=== PATIENT | female | born 1950 | race Caucasian/White ===

== ENCOUNTER 2018-04-05 06:57 | Day surgery (SDC) | payer BC ==
[2018-04-05] MEDS ORDERED: PROPOFOL 200 MG INJ (07:00)
[2018-04-05] MEDS ORDERED: SOD CHLORIDE 0.9% 1,000 ML IV (08:00)
[2018-04-05] MEDS: MOXIFLOXACIN 0.5% 3 ML OPH OPER (08:05)
[2018-04-05] MEDS: CYCLOPENTOLATE/PHENYLEPH 5 ML OPH XX (08:05)
[2018-04-05] MEDS: DICLOFENAC 0.1% 2.5 ML OPH OPER (08:05)
[2018-04-05] MEDS: TROPICAMIDE 1% 15 ML OPH OPER (08:05)
[2018-04-05] MEDS ORDERED: TETRACAINE 0.5% 4 ML OPH (09:24)
[2018-04-05] MEDS ORDERED: BUPIVACAINE 0.75% (MPF) 10 ML INJ (09:24)
[2018-04-05] MEDS ORDERED: LIDOCAINE 2% (SDV) 5 ML INJ (09:25)
[2018-04-05] MEDS ORDERED: GENTAMICIN 80 MG INJ (09:25)
[2018-04-05] MEDS: CARBACHOL 0.01% 1.5 ML OPH INJ (09:59)
[2018-04-05] MEDS: DEXAMETHASONE 4 MG/ML 1 ML INJ (09:59)
[2018-04-05] MEDS: CEFAZOLIN 1 GM INJ (10:00)
[2018-04-05] MEDS: NA HYALURONATE/CHONDROITIN 0.5 ML SYG OP (10:01)
== END 2018-04-05 11:45 | disposition home or self-care (01) ==
LOC: SDS 06:57
DX: H25.11 Age-related nuclear cataract, right eye (principal); E11.9 Type 2 diabetes mellitus without complications; E78.5 Hyperlipidemia, unspecified
CPT/HCPCS: 66984; 82962

== ENCOUNTER 2018-07-18 06:47 | Day surgery (SDC) | payer BC ==
[2018-07-18] MEDS: CYCLOPENTOLATE/PHENYLEPH 2 ML OPH OPER (07:49)
[2018-07-18] MEDS: SOD CHLORIDE 0.9% 1,000 ML IV (07:49)
[2018-07-18] MEDS: DICLOFENAC 0.1% 2.5 ML OPH OPER (07:50)
[2018-07-18] MEDS: MOXIFLOXACIN 0.5% 3 ML OPH OPER (07:51)
[2018-07-18] MEDS: TROPICAMIDE 1% 15 ML OPH OPER (07:52)
[2018-07-18] MEDS ORDERED: OXYCODONE/ACETAMINOPHEN (5/325) TAB PO ×2 (09:00)
[2018-07-18] MEDS ORDERED: METOCLOPRAMIDE 10 MG INJ IV (09:00)
[2018-07-18] MEDS ORDERED: FENTAnyl 50 MCG/ML VIAL IV ×3 (09:00)
[2018-07-18] MEDS ORDERED: CEFAZOLIN 1 GM INJ (09:14)
[2018-07-18] MEDS ORDERED: PROPOFOL 20 ML (09:34)
[2018-07-18] MEDS ORDERED: FENTAnyl 50 MCG/ML VIAL (10:12)
[2018-07-18] MEDS: DEXAMETHASONE 4 MG/ML 1 ML INJ (11:49)
[2018-07-18] MEDS: NA HYALURONATE/CHONDROITIN 0.5 ML SYG (11:49)
[2018-07-18] MEDS: CARBACHOL 0.01% 1.5 ML OPH INJ (11:49)
[2018-07-18] MEDS: LIDOCAINE 4% (MPF) 5 ML INJ (11:50)
[2018-07-18] MEDS: TETRACAINE 0.5% 4 ML OPH (11:50)
== END 2018-07-18 12:15 | disposition home or self-care (01) ==
LOC: SDS 06:47
DX: H25.042 Posterior subcapsular polar age-related cataract, left eye (principal); E11.9 Type 2 diabetes mellitus without complications
CPT/HCPCS: 66984; 82962